=== PATIENT | female | born 1970 | race Caucasian/White ===

== ENCOUNTER → 2016-12-30 | Outpatient (CLI) | payer OTHER ==
--- NOTE | 2017-01-03 12:25 | Diagnostic Imaging Report ---
INDICATION: Screening. The current study was also evaluated with a Computer Aided Detection (CAD) system. Comparison made with prior examination 12/29/2015; 02/10/2015; 04/15/2014. FINDINGS: There is a moderate amount of residual fibroglandular tissue bilaterally. There are scattered benign-type calcifications which are unchanged. There is no dominant mass, spiculated lesion, or suspicious calcifications identified. Skin, nipples, and axilla are unremarkable. IMPRESSION: Category 2 benign. ACR BI-RADS Category 2: Benign findings. Result letter will be mailed to the patient. Note: At least 10% of breast cancer is not imaged by mammography. Dictated by: Dictated on workstation # [id number]
== END ==
LOC: RAD 07:45
PROVIDERS: ATTEND Internal Medicine
DX: Z12.31 Encounter for screening mammogram for malignant neoplasm of breast (principal)
CPT/HCPCS: 77067

== ENCOUNTER → 2018-02-16 | Outpatient (CLI) | payer OTHER ==
--- NOTE | 2018-02-16 12:49 | Diagnostic Imaging Report ---
INDICATION: Routine screening. Comparison is made with prior mammogram from 12/30/2016 and 12/29/2015. 2-D and 3-D bilateral screening mammography was performed with CAD. The current study was also evaluated with a Computer Aided Detection (CAD) system. FINDINGS: Both breasts are heterogeneously dense, limiting the sensitivity of mammography. There are benign calcifications scattered throughout both breasts. There has been development of a circumscribed density in the upper and slightly medial left breast approximately 4-5 cm from the nipple. This measures approximately 2 cm in diameter, may represent a cyst. Further evaluation with ultrasound is recommended. The right breast is unremarkable. The axillae are unremarkable. IMPRESSION: Circumscribed 2 cm density in the upper and slightly inner left breast, likely a cyst. Further evaluation with ultrasound is recommended. ACR BI-RADS Category 0: Incomplete. (Needs additional imaging evaluation). Result letter will be mailed to the patient. Note: At least 10% of breast cancer is not imaged by mammography. Dictated by: Dictated on workstation # [id number]
== END ==
LOC: RAD 08:00
PROVIDERS: ATTEND Internal Medicine
DX: Z12.31 Encounter for screening mammogram for malignant neoplasm of breast (principal); R92.8 Other abnormal and inconclusive findings on diagnostic imaging of breast
CPT/HCPCS: 77067

== ENCOUNTER → 2018-03-12 | Outpatient (CLI) | payer OTHER ==
--- NOTE | 2018-03-12 14:49 | Diagnostic Imaging Report ---
Indication: Abnormal screening mammogram. Correlation is made with screening mammogram from 02/16/2018. Sonographic interrogation of the upper inner left breast was performed. There is a circumscribed anechoic mass at the 11 o'clock location of the left breast, 3 cm from the nipple measuring 2.1 x 1.7 x 1.9 cm. This demonstrates posterior acoustic enhancement and is most consistent with a simple cyst. This does correlate with the density noted mammographically. No solid mass is seen. Impression: BI-RADS 2 Simple cyst left breast 11 o'clock location 3 cm from the nipple corresponding to the mammographic abnormality. The patient may return to routine annual screening mammography. ACR BI-RADS Category 2: Benign findings. Result letter will be mailed to the patient. Note: At least 10% of breast cancer is not imaged by mammography. Dictated by: Dictated on workstation # [id number]
== END ==
LOC: RAD 13:35
PROVIDERS: ATTEND Internal Medicine
DX: N60.02 Solitary cyst of left breast (principal)
CPT/HCPCS: 76642

== ENCOUNTER → 2019-04-09 | Outpatient (CLI) | payer OTHER ==
--- NOTE | 2019-04-09 08:32 | Diagnostic Imaging Report ---
INDICATION: Screening The current study was also evaluated with a Computer Aided Detection (CAD) system. 3-D Tomographic imaging was also performed. Comparison made with prior examination of 02/16/2018, 12/30/2016 and 12/29/2015. FINDINGS: The thyroid tissue is heterogeneously dense bilaterally. There are numerous punctate calcifications scattered throughout both breasts. There is no dominant mass or spiculated lesion. The skin and nipples and axilla are unremarkable. IMPRESSION: Category 2 benign. ACR BI-RADS Category 2: Benign findings. Result letter will be mailed to the patient. Note: At least 10% of breast cancer is not imaged by mammography. Dictated by: Dictated on workstation # [id number]
== END ==
LOC: RAD 07:24
PROVIDERS: ATTEND Internal Medicine
DX: Z12.31 Encounter for screening mammogram for malignant neoplasm of breast (principal)
CPT/HCPCS: 77067

== ENCOUNTER → 2020-04-10 | Outpatient (CLI) | payer OTHER ==
--- NOTE | 2020-04-10 12:31 | Diagnostic Imaging Report ---
INDICATION: Routine screening. Comparison is made with prior mammogram 04/09/2019 and 02/16/2018. 2-D and 3-D bilateral screening mammography was performed with CAD. Both breasts remain heterogeneously dense, limiting the sensitivity of mammography. A circumscribed mass in the outer left breast has increased in size since prior exam. This may represent an enlarging cyst. Further evaluation with ultrasound is recommended. There are benign considerations bilaterally. No malignant appearing microcalcifications are seen. Axillae are unremarkable. IMPRESSION: BI-RADS Category 0 Enlarging circumscribed density in the outer left breast approximately 6 cm from the nipple. This may represent an enlarging cyst and further evaluation with ultrasound is recommended. ACR BI-RADS Category 0: Incomplete. (Needs additional imaging evaluation). Result letter will be mailed to the patient. Note: At least 10% of breast cancer is not imaged by mammography. Dictated by: Dictated on workstation # [id number]
== END ==
LOC: RAD 08:15
PROVIDERS: ATTEND Internal Medicine
DX: Z12.31 Encounter for screening mammogram for malignant neoplasm of breast (principal)
CPT/HCPCS: 77063; 77067

== ENCOUNTER → 2020-04-21 | Outpatient (CLI) | payer OTHER ==
--- NOTE | 2020-04-21 14:57 | Diagnostic Imaging Report ---
INDICATION: Abnormal mammogram demonstrating a circumscribed density in the slightly outer left breast. This study is performed for further evaluation. COMPARISON: Correlation is made with the recent screening mammogram from 04/10/2020. FINDINGS: Sonographic interrogation of the outer left breast demonstrates a simple appearing cyst at the 4 o'clock location measuring 2.1 x 2.5 x 2.8 cm. This correlates with the density noted mammographically. This appears to be simple. No internal vascularity is seen. There is posterior acoustic enhancement. IMPRESSION: Simple cyst at the 4 o'clock location of the left breast accounting for the mammographic density. The patient may return to routine annual screening mammography. ACR BI-RADS Category 2: Benign findings. Dictated by: Dictated on workstation # [id number]
== END ==
LOC: RAD 14:00
PROVIDERS: ATTEND Internal Medicine
DX: N60.02 Solitary cyst of left breast (principal)
CPT/HCPCS: 76642

== ENCOUNTER → 2021-04-16 | Outpatient (CLI) | payer OTHER ==
--- NOTE | 2021-04-16 10:11 | Diagnostic Imaging Report ---
INDICATION: Routine screening. COMPARISON is made with prior mammograms 04/10/2020 and 04/19/2019. 2-D and 3-D bilateral screening mammography was performed with CAD. Both breasts are heterogeneously dense, limiting the sensitivity of mammography. There are microcalcific lesion scattered throughout both breasts which appear to be fairly similar to prior exam. No mass or malignant-appearing microcalcifications are seen. Axillae are unremarkable. IMPRESSION: BI-RADS Category 2 No mammographic features suspicious for malignancy are identified. ACR BI-RADS Category 2: Benign findings. Result letter will be mailed to the patient. Note: At least 10% of breast cancer is not imaged by mammography. Dictated by: Dictated on workstation # [id number]
== END ==
LOC: RAD 07:30
PROVIDERS: ATTEND Internal Medicine
DX: Z12.31 Encounter for screening mammogram for malignant neoplasm of breast (principal)
CPT/HCPCS: 77063; 77067

== ENCOUNTER → 2021-09-30 | Outpatient (CLI) | payer OTHER ==
--- NOTE | 2021-09-30 15:42 | Diagnostic Imaging Report ---
INDICATION: Left leg swelling Left leg venous Doppler study performed in the routine fashion with color flow Doppler waveform analysis. Evaluation is compared to 10/19/2011 The common femoral vein and profunda femoris vein and proximal and mid portions of the SFV are patent. There is thrombus in the distal SFV and popliteal vein. There appears to be thrombus in the peroneal vein in the calf. IMPRESSION: Evidence of deep vein thrombosis involving the left popliteal vein and distal SFV as well as the peroneal vein and the catheter. Dictated by: Dictated on workstation # [id number]
== END ==
LOC: RAD 14:28
PROVIDERS: ATTEND Family Medicine
DX: I82.432 Acute embolism and thrombosis of left popliteal vein (principal)

== ENCOUNTER → 2022-04-18 | Outpatient (CLI) | payer OTHER ==
--- NOTE | 2022-04-18 11:53 | Diagnostic Imaging Report ---
INDICATION: Routine screening. COMPARISON: 04/16/2021 and 04/10/2020. TECHNIQUE: 2D and 3D bilateral screening mammography was performed with CAD. FINDINGS: Both breasts are heterogeneously dense, limiting the sensitivity of mammography. The parenchymal pattern is stable. There are scattered benign calcifications bilaterally. No mass or malignant-appearing microcalcifications are seen. The axillae are unremarkable. IMPRESSION: No mammographic features suspicious for malignancy are identified. ACR BI-RADS Category 2: Benign findings. Result letter will be mailed to the patient. Note: At least 10% of breast cancer is not imaged by mammography. Dictated by: Dictated on workstation # [id number]
== END ==
LOC: RAD 08:00
PROVIDERS: ATTEND Internal Medicine
DX: Z12.31 Encounter for screening mammogram for malignant neoplasm of breast (principal)
CPT/HCPCS: 77063; 77067